=== PATIENT | female | born 1985 | race Caucasian/White ===

== ENCOUNTER 2017-10-04 15:54 | Emergency (ER) | payer OTHER ==
[~2017-10-04] VITALS: Ht 152.4 cm; Wt 50.1 kg
[2017-10-04 16:43] LABS: microscopic required? NO
[2017-10-04 16:51] LABS: urine erythrocyte NEGATIVE (NEGATIVE)
[2017-10-04 16:55] LABS: BASOPHIL % 0.5 % (0-2); PLATELET COUNT 172 x10^3mcL (130-400); RED CELL DISTRIBUTION WIDTH 12.5 % (11.5-14.5)
[2017-10-04 16:59] LABS: AMPHETAMINE QUAL UR NONE DETECTED (NEG <=1000)
[2017-10-04 17:00] LABS: CALCIUM 9.5 mg/dL (8.5-10.1); CHLORIDE SERUM 102 mmol/L (98-107); GFR1 > 60 mL/min; GLUCOSE SERUM 92 mg/dL (74-106); POTASSIUM SERUM 3.2 mmol/L (3.5-5.1); SODIUM SERUM 139 mmol/L (136-145)
[2017-10-04 17:12] LABS: ALBUMIN 4.1 g/dL (3.4-5.0); ALKALINE PHOSPHATASE 63 U/L (46-116); ALT/SGPT 17 U/L (14-59); AMYLASE 113 U/L (25-115); AST/SGOT 15 U/L (15-37); BILIRUBIN TOTAL 0.7 mg/dL (0.20-1.00); CHOLESTEROL 189 mg/dL (<200); LIPASE 200 IU/L (73-393); T4(THYROXINE) 8.9 ug/dL (4.7-13.3)
[2017-10-04 17:14] LABS: HDL CHOLESTEROL 67 mg/dL (40-60); TOTAL PROTEIN, SERUM 8.3 g/dL (6.4-8.2)
[2017-10-04 17:31] LABS: CK-MB < 0.5 ng/mL (0-3.6); CREATINE KINASE 36 U/L (26-192)
[2017-10-04 19:49] VITALS: BP 104/65
== END 2017-10-04 19:49 | disposition home or self-care (01) ==
LOC: ED 15:54
PROVIDERS: Emergency Medicine
DX: E87.3 Alkalosis (principal); F41.9 Anxiety disorder, unspecified; E87.6 Hypokalemia; K21.9 Gastro-esophageal reflux disease without esophagitis; D75.1 Secondary polycythemia; E83.119 Hemochromatosis, unspecified; Z88.1 Allergy status to other antibiotic agents; Z88.6 Allergy status to analgesic agent
CPT/HCPCS: 83880; 94150; J2060; J7030; J7040